=== PATIENT | female | born 1955 | race African-American/Black ===

== ENCOUNTER 2022-11-03 13:41 | Emergency (ER) | payer MEDICARE, MEDICAID ==
[~2022-11-03] VITALS: Ht 160 cm; Wt 91.0 kg
[~2022-11-03 13:41] MED LIST: ASPI-1160 PO; DILT30TA38 PO; FURO10VI3 PO; GUAI600T44 PO; KETO15VI22 PO; LACT10SO7 PO; LINA5TAB PO; SENN-3 PO
[2022-11-03 15:13] LABS: CHLORIDE 102 mEq/L (98-107)
[2022-11-03 15:16] LABS: BASOPHILS % 0.7 % (0.0-2.0); EOSINOPHILS % 0.2 % (0.0-5.0); HEMATOCRIT. 33.5 % (36.0-48.0); HEMOGLOBIN. 10.6 g/dL (12.0-16.0); LYMPHOCYTES % 9.6 % (20.0-50.0); MEAN CORPUSCULAR HEMOGLOBIN 24.9 pg (28.0-32.0); MEAN CORPUSCULAR VOLUME 78.6 fL (81.0-99.0); MONOCYTES % 7.8 % (2.0-8.0); NEUTROPHILS % 81.7 % (40.0-76.0); RED BLOOD CELL COUNT 4.26 mill/uL (4.2-5.4); RED CELL DISTRIBUTION WIDTH 20.3 % (11.6-14.6)
[2022-11-03] MEDS ORDERED: ACETAMINOPHEN 325MG TABLET PO NR (15:53)
[2022-11-03] MEDS ORDERED: VANCOMYCIN 1G PREMIX 200 ML IV SCH (16:00)
[2022-11-03] MEDS ORDERED: SODIUM CHLORIDE 0.9% 1000ML BAG (SEPSIS BOLUS) IV ONE ×2 (16:00→18:45)
[2022-11-03] MEDS ORDERED: SODIUM CHLORIDE 0.9% 2,730 ML IV SCH (16:00)
[2022-11-03] MEDS ORDERED: PIPERACILLIN/TAZ 3.375G PREMIX 50 ML IV NR (16:00)
[2022-11-03] MEDS ORDERED: PIPERACILLIN/TAZOBACTAM 3.375GM/50ML PREMIX IV ONE (16:00)
[2022-11-03 16:04] LABS: CLARITY URINE CLEAR (CLEAR); COLOR URINE DARK YELLOW (YELLOW); KETONES URINE TRACE (NEGATIVE); LEUKOCYTE ESTERASE URINE TRACE (NEGATIVE); NITRITE URINE NEGATIVE (NEGATIVE); OCCULT BLOOD URINE NEGATIVE (NEGATIVE); PH URINE 6.5 (4.5-8.0); PROTEIN URINE 2+ (NEGATIVE); SPECIFIC GRAVITY URINE 1.022 (1.005-1.030)
[2022-11-03 17:19] LABS: INR 1.2; PROTHROMBIN TIME 12.6 sec (9.6-11.0)
[2022-11-03] MEDS ORDERED: HYDROCODONE/ACETAMINOPHEN 10/325MG TABLET PO ONE (18:45)
[2022-11-03] MEDS ORDERED: IOHEXOL-300 100 ML BOTTLE ONE (20:51)
[2022-11-03] MEDS ORDERED: HYDROCODONE/ACETAMINOPHEN 5/325MG TABLET PO ONE (23:15)
[2022-11-03 23:21] VITALS: BP 138/68
== END 2022-11-04 01:04 | disposition short-term general hospital (02) ==
LOC: ER 13:59 → CANBEDREQ 11-04 01:52
DX: A41.9 Sepsis, unspecified organism (principal); R65.20 Severe sepsis without septic shock; T81.49XA Infection following a procedure, other surgical site, initial encounter; L02.91 Cutaneous abscess, unspecified; E11.9 Type 2 diabetes mellitus without complications; J45.909 Unspecified asthma, uncomplicated; I10 Essential (primary) hypertension; Z20.822 Contact with and (suspected) exposure to COVID-19; Z88.1 Allergy status to other antibiotic agents; Z79.899 Other long term (current) drug therapy
CPT/HCPCS: 36415; 73502; 73700; 80048; 81003; 83605; 84145; 85025; 85610; 86850; 86900; 86901; 87040; 87426; 96361; 96365; 96368; 99291; J2543; J3370; J7030; Q9967

== ENCOUNTER 2023-10-15 11:10 | Emergency (ER) | payer MEDICARE, MEDICAID ==
[~2023-10-15] VITALS: Ht 162.6 cm; Wt 116.0 kg
[~2023-10-15 11:10] MED LIST changes: +DILT30TA37 PO; -DILT30TA38 PO
[2023-10-15 11:15] VITALS: TEMP 98.2; O2SAT 98
[2023-10-15 12:45] VITALS: BP 180/86; PULSE 96; RESP 18
[2023-10-15] MEDS ORDERED: HYDROCODONE/ACETAMINOPHEN 5/325MG TABLET PO ONE (12:45)
[2023-10-15] MEDS ORDERED: ACET-2708 MT (14:36)
== END 2023-10-15 18:50 | disposition home or self-care (01) ==
LOC: ER 11:10
DX: M25.551 Pain in right hip (principal); J45.909 Unspecified asthma, uncomplicated; I10 Essential (primary) hypertension; E11.9 Type 2 diabetes mellitus without complications; Z88.5 Allergy status to narcotic agent; Z88.1 Allergy status to other antibiotic agents; Z79.899 Other long term (current) drug therapy
CPT/HCPCS: 73502; 93971; 99284